=== PATIENT | female | born 1955 | race Caucasian/White ===

== ENCOUNTER → 2020-10-05 04:16 | Outpatient (CLI) | payer MEDICARE, BC, SELFPAY ==
[2020-10-05 19:04] LABS: SARS-CoV-2 RNA PCR Negative
== END ==
PROVIDERS: PCP Family Medicine; Visit Provider Urology
DX: Z01.812 Encounter for preprocedural laboratory examination (principal); Z20.822 Contact with and (suspected) exposure to COVID-19
CPT/HCPCS: C9803; U0003; U0005

== ENCOUNTER 2020-10-05 09:16 | Outpatient (CLI) | payer MEDICARE, BC, SELFPAY ==
--- NOTE | 2020-10-05 09:30 | ECG_ITS ---
Measurements Intervals [place] Rate: 72 P: 43 UT: 177 QRS: 38 QRSD: 80 T: 37 QT: 367 QTc: 402 Interpretive Statements SINUS RHYTHM CANNOT RULE OUT SEPTAL INFARCT, AGE INDETERMINATE BASELINE ARTIFACT- I, II, AVR ABNORMAL ECG Electronically Signed On 10-05-2020 10:00:31 CDT by Josue Beth D.O.
== END 2020-10-05 09:17 | disposition home or self-care (01) ==
LOC: ANHSURGERY 09:26
PROVIDERS: PCP Family Medicine; Visit Provider Urology
DX: Z01.812 Encounter for preprocedural laboratory examination (principal); I10 Essential (primary) hypertension; R94.31 Abnormal electrocardiogram [ECG] [EKG]
CPT/HCPCS: 93005; C9803; U0003; U0005

== ENCOUNTER 2020-10-08 02:04 | Day surgery (SDC) | payer MEDICARE, BC, SELFPAY ==
[2020-09-28 09:49] VITALS: BMI 30.6
--- NOTE | 2020-10-02 11:31 | PM.IMHP ---
H&P: HPI History of Present Illness Date/Time: 10/02/20 11:31 a 65-year-old woman with overactive bladder. She has undergone a successful trial of sacral nerve stimulation. She is here today for device implantation Chief Complaint: overactive bladder Review of Systems Review of Systems: All systems reviewed & are unremarkable except as noted in HPI and below PMFSH Family History Family History (Updated 10/02/20 @ 11:33 by Mahad Lewis MD) Other Heart disease Hypertension Social History Social History Smoking packs per day: 0.5 Smoking cigarettes per day: 10.0 Years smoked: 12 Smoking pack-years: 6.00 Smoking status: Never smoker Tobacco type: cigarettes Smoking end date: 12/30/05 Alcohol intake: never Substance use: never Additional living arrangements comments: Spiritual care concerns: No Meds Home Medications and Allergies Home Medications Medication Instructions Recorded Confirmed Type L.acid-L.casei-B.bif-B.shena-FOS 1 cap PO DAILY 09/28/20 09/28/20 History [Probiotic Blend] alprazolam 0.25 mg PO DAILY PRN 09/28/20 09/28/20 History biotin 5,000 mcg PO BID 09/28/20 09/28/20 History calcium 1,200 mg PO BID 09/28/20 09/28/20 History cholecalciferol (vitamin D3) 250 mcg PO BID 09/28/20 09/28/20 History [Vitamin D3] dexlansoprazole [Dexilant] 60 mg PO QAM 09/28/20 09/28/20 History duloxetine 60 mg PO BID 09/28/20 09/28/20 History escitalopram oxalate 20 mg PO QAM 09/28/20 09/28/20 History gabapentin 300 mg PO TID 09/28/20 09/28/20 History hydrocodone-acetaminophen 1 tablet PO BID 09/28/20 09/28/20 History iron 18 mg PO DAILY 09/28/20 09/28/20 History lifitegrast [Xiidra] 1 drp EACH EYE BID 09/28/20 09/28/20 History losartan 100 mg PO HS 09/28/20 09/28/20 History nortriptyline 10 mg PO HS 09/28/20 09/28/20 History rosuvastatin 10 mg PO DAILY 09/28/20 09/28/20 History tizanidine 4 mg PO HS 09/28/20 09/28/20 History valacyclovir 500 mg PO DAILY 09/28/20 09/28/20 History Allergies Allergy/AdvReac Type Severity Reaction Status Date / Time No Known Allergies Allergy Verified 09/28/20 09:33 Exam Const: General: cooperative HENMT: Head: normal to inspection Eyes: General: appearance normal, both eyes and all related structures Chest: Chest palpation & inspection: normal inspection of the chest Resp: Effort & Inspection: normal respiratory effort and able to speak in complete sentences GI: Inspection: normal to inspection Back/Spine/Pelvis: Back: no CVA tenderness Skin: General skin exam: normal color Neuro: General: patient oriented x3 Assessment and Plan Assessment and plan (1) Overactive bladder: Code(s): N32.81 - Overactive bladder Status: Acute Assessment and Plan: insertion of sacral nerve stimulator
--- NOTE | ~2020-10-08 | XR_ITS ---
EXAMINATION: XR fl neurostim insert<1hr EXAM DATE: 10/08/2020 08:27 INDICATION: Interstim Phase 2 . TECHNIQUE: Fluoroscopy used during XR fl neurostim insert<1hr performed by Dr. Mahad Lewis MD . Radiologist was not present for the imaging or procedure. Total fluoroscopic time of 4.1 minutes. A total of 2 images obtained for the exam. The DAP for this procedure was 3.7 mGym2. FINDINGS: Frontal and lateral images demonstrate neurostimulator extending through the left neural f oramina most likely at S3-4 level but. Correlate with procedure note. IMPRESSION: Fluoroscopy used during XR fl neurostim insert<1hr. Reviewed, dictated and finalized at location A.
[2020-10-08] MEDS: LACTATED RINGERS 1,000 ML 30 ML IV CONT (06:56)
--- NOTE | 2020-10-08 07:05 | WPDANESEPPF ---
Anes - Initial Pre Proc Eval Procedure: Operation Date: 10/08/20 07:30 Proposed Procedures p Interstim Phase Two - Mahad Lewis MD Date/Time: 10/08/20 07:05 Surgeon: Mahad Lewis MD Pre Op Diagnosis: overactive bladder Patient Data Age: 65 Gender: F Height: 5 ft 6 in Weight: 86 kg Allergies Allergy/AdvReac Type Severity Reaction Status Date / Time No Known Allergies Allergy Verified 09/28/20 09:33 Home Medications Medication Instructions Recorded Confirmed Type L.acid-L.casei-B.bif-B.shena-FOS 1 cap PO DAILY 09/28/20 09/28/20 History [Probiotic Blend] alprazolam 0.25 mg PO DAILY PRN 09/28/20 09/28/20 History biotin 5,000 mcg PO BID 09/28/20 09/28/20 History calcium 1,200 mg PO BID 09/28/20 09/28/20 History cholecalciferol (vitamin D3) 250 mcg PO BID 09/28/20 09/28/20 History [Vitamin D3] dexlansoprazole [Dexilant] 60 mg PO QAM 09/28/20 09/28/20 History duloxetine 60 mg PO BID 09/28/20 09/28/20 History escitalopram oxalate 20 mg PO QAM 09/28/20 09/28/20 History gabapentin 300 mg PO TID 09/28/20 09/28/20 History hydrocodone-acetaminophen 1 tablet PO BID 09/28/20 09/28/20 History iron 18 mg PO DAILY 09/28/20 09/28/20 History lifitegrast [Xiidra] 1 drp EACH EYE BID 09/28/20 09/28/20 History losartan 100 mg PO HS 09/28/20 09/28/20 History nortriptyline 10 mg PO HS 09/28/20 09/28/20 History rosuvastatin 10 mg PO DAILY 09/28/20 09/28/20 History tizanidine 4 mg PO HS 09/28/20 09/28/20 History valacyclovir 500 mg PO DAILY 09/28/20 09/28/20 History Patient hx anesthesia problems: none Family hx anesthesia problems: none PMFSH Past Medical History Medical History (Updated 10/08/20 @ 07:06 by Hector Hernandez MD) Chronic back pain Surgical History Surgical History (Updated 10/08/20 @ 07:06 by Hector Hernandez MD) History of gastric surgery Family History Family History Other Heart disease Hypertension Social History Social History Smoking packs per day: 0.5 Smoking cigarettes per day: 10.0 Years smoked: 12 Smoking pack-years: 6.00 Smoking status: Never smoker Tobacco type: cigarettes Smoking end date: 12/30/05 Alcohol intake: never Substance use: never Living arrangements: with family Additional living arrangements comments: Spiritual care concerns: No Anes - Eval Final PreProcedure Day of Procedure 10/08/20 07:05 Patient weight: obese Heart: regular rate and rhythm Lungs: clear to auscultation Airway: Mallampati scale class II Neurological: alert and oriented Last oral intake: >/= 8 hours ASA classification: III Emergent: no Anesthetic plan: proceed Anesthesia type and monitoring: general LMA and standard monitoring Informed Consent: The patient's anesthetic plan and its attendant risks and benefits were discussed with the patient/family/POA. Questions were solicited and answers provided to the satisfaction of the patient/family/POA.
--- NOTE | 2020-10-08 07:20 | WPDHPUPDATE1 ---
History and Physical Update Update Date/Time: 10/08/20 07:20 History and Physical has been reviewed, including an updated exam of the patient. There are NO changes in the patient's condition. Risks, benefits, and alternatives have been discussed and questions answered. Patient agrees to proceed with procedure.
[2020-10-08] MEDS: ceFAZolin 2 GM/D5W 50 ML 2 GM/50 ML BAG IVPB (07:27)
[2020-10-08 07:30] VITALS: BP 112/72; PULSE 75; RESP 12; TEMP 36.6; O2SAT 96
[2020-10-08] MEDS: BUPIVACAINE/EPINEPHRINE 0.25% 50 ML VIAL 30 ML INFILTRATE (07:45)
--- NOTE | 2020-10-08 08:33 | PM.PROC ---
Procedure Note - Detailed Date of procedure: 10/08/20 Pre-op diagnosis: overactive bladder Procedure performed: Placement of sacral Fluoroscopic guidance for needle placement Placement of implantable pulse generator Complex neurostimulator programming and impedance check Description of procedure: This patient has undergone a successful InterStim trial. He presents today for placement of a permanent device. Understanding the risks of bleeding, infection, lack of efficacy, need for repeat procedures, need for revision. They agree to proceed Dear correctly identified and informed consent was obtained. There brought to the operating room. Placed in the prone position. There given appropriate anesthesia. There prepped and draped in a sterile fashion. A time-out performed. I used fluoroscopy to identify my sacral landmarks in the AP and lateral orientation. I anesthetized the skin. I into the sacral foramen on the left and the right. I monitored the needle fluoroscopy. I entered right and left S3 foramen. I stimulated the needle and got appropriate response at low thresholds. I made a skin denia. I placed a stylet and the lead introducer sheath. I then placed and deployed by lead again under fluoroscopy. I marked out the site of the future pulse generator. I anesthetized the skin. I made an incision. I created a subcutaneous pocket. I obtained hemostasis. I irrigated out the wound. I then tunneled the lead towards this pocket. Appropriate connections were made between the lead and battery. The battery was programmed. It was placed in the pocket. Impedances were checked and found to be normal. I once again assured hemostasis. I irrigated out all wounds. I closed the subcu with 2 0 Vicryl. Skin with 4 0 Vicryl. Glue was applied. They were then awakened and transferred to the PACU in stable condition. Implants: Neuromodulation device Anesthesia: MAC and local Surgeon: Mahad Lewis MD Drains: No Packing: No Pathology: none sent Complications: No immediate complications Condition: stable Disposition: PACU
[2020-10-08 08:34] VITALS: BP 103/63; PULSE 73; RESP 14; TEMP 36.6; O2SAT 94
[2020-10-08 09:05] VITALS: BP 100/56; PULSE 72; RESP 12
[2020-10-08] MEDS: fentaNYL CITRATE INJ (*CRX) 100 MCG/2 ML VIAL 25 MCG IV PUSH ×2 (09:14→09:19)
== END 2020-10-08 09:43 | disposition home or self-care (01) ==
PROVIDERS: PCP Family Medicine; Visit Provider Urology
PROC: (CPT 64581; principal; 2020-10-08 07:30)
DX: N32.81 Overactive bladder (principal); N39.41 Urge incontinence; F17.210 Nicotine dependence, cigarettes, uncomplicated; E66.9 Obesity, unspecified; Z68.30 Body mass index [BMI] 30.0-30.9, adult
CPT/HCPCS: 64581; 64590; C1767; C1778; C1787; J0690; J2250; J2704; J3010; J7120